=== PATIENT | male | born 1995 | race Caucasian/White ===

== ENCOUNTER 2020-03-09 20:33 | Emergency (ER) | payer BC, OTHER ==
[2020-03-09 20:40] VITALS: TEMP 98.2
[2020-03-09] MEDS ORDERED: RABIES IMMUNE GLOB 300 UNIT/ML 1 ML VIAL IM ONE (21:03)
[2020-03-09] MEDS ORDERED: RABIES VACCINE (PCEC) 2.5 UNIT KIT IM ONE (21:03)
[2020-03-09] MEDS ORDERED: DIPH,PERTUS(ACELL)TETVAC-LF 0.5 ML VIAL IM ONE (21:03)
[2020-03-09] MEDS ORDERED: RABIES IMMUNE GLOB 300 UNIT/ML 5 ML VIAL IM ONE (21:15)
--- NOTE | 2020-03-09 22:01 | ED ---
General Adult HPI - General Chief complaint: Animal Bite Stated complaint: Bat Bite Time Seen by Provider: 03/09/20 20:45 Source: patient, RN notes reviewed, old records reviewed Mode of arrival: ambulatory Limitations: no limitations - History of Present Illness Initial comments: 23-year-old male patient with the chief complaint of bat bite. Patient reports that there was a bad in his house and his cat was engaging with that. He reports that he attempted to grab the bat and it bit him on the index finger of his right hand. Patient reports that he there is a cleaned afterwards. This occurred about 1-2 hours before coming to the ER. He denying any other complaints or any other bites besides the one time on the finger. Systemic: Pt denies fatigue, fever/chills, rash. Pt denies weakness, night sweats, weight loss. Neuro: Pt denies headache, visual disturbances, syncope or pre-syncope. HEENT: Pt denies ocular discharge or irritation, otalgia, rhinorrhea, pharyngitis or notable lymphadenopathy. Cardiopulmonary: Pt denies chest pain, SOB, heart palpitations, dyspnea on exertion. Abdominal/GI: Pt denies abdominal pain, n/v/d. : Pt denies dysuria, burning w/ urination, frequency/urgency. Denies new onset urinary or bowel incontinence. MSK: Pt denies myalgia, loss of strength or function in extremities. Neuro: Pt denies new onset weakness, paresthesias. - Related Data Home Medications Medication Instructions Recorded Confirmed Unable To Assess [Unable to Assess] 05/17/15 05/17/15 Allergies Allergy/AdvReac Type Severity Reaction Status Date / Time No Known Allergies Allergy Verified 03/09/20 20:40 Review of Systems ROS Statement: Those systems with pertinent positive or pertinent negative responses have been documented in the HPI. ROS Other: All systems not noted in ROS Statement are negative. Past Medical History Past Medical History: No Reported History Additional Past Medical History / Comment(s): ADD, OCD, Autism History of Any Multi-Drug Resistant Organisms: None Reported Past Surgical History: Cholecystectomy Past Psychological History: ADD/ADHD Smoking Status: Never smoker Past Alcohol Use History: Rare Past Drug Use History: None Reported General Exam - General Exam Comments Initial Comments: Constitutional: NAD, AOX3, Pt has pleasant affect. HEENT: NC/AT, trachea midline, neck supple, no lymphadenopathy. External ears appear normal, without discharge. Mucous membranes moist. EOM intact. There is no scleral icterus. No pallor noted. Cardiopulmonary: RRR, no murmurs, rubs or gallops, no JVD noted. Lungs CTAB in anterior and posterior romeo. No peripheral edema. Neuro: CN II-XII grossly intact. No nuchal rigidity. MSK: No other areas of trauma noted on figer or hand. Full active ROM in upper and lower extremities, 5/5 stregnth. Limitations: no limitations Course Vital Signs 03/09/20 20:37 Temperature 98.2 F Pulse Rate 88 Respiratory 18 Rate Blood Pressure 121/86 O2 Sat by Pulse 97 Oximetry Medical Decision Making - Medical Decision Making 23-year-old male patient with the chief complaint of bat bite. Patient reports that there was a bad in his house and his cat was engaging with that. He reports that he attempted to grab the bat and it bit him on the index finger of his right hand. Patient reports that he there is a cleaned afterwards. This occurred about 1-2 hours before coming to the ER. He denying any other complaints or any other bites besides the one time on the finger. Patient vital signs are stable, afebrile. Physical exam displayed a small puncture. Area was cleaned again. Rabies immunoglobulin was injected around the area and then intramuscularly. Rabies vaccine was injected intramuscularly. Patient does still have bat. Patient will be given information for animal control and the health department in order to find the proper area to bring in for testing. Patient will follow-up with his primary care provider and get to was never sent after the completion of his rabies vaccine. Case discussed with Dr. Portillo. Disposition Clinical Impression: Bat bite of finger Disposition: HOME SELF-CARE Condition: Stable Instructions (If sedation given, give patient instructions): Animal Bite (ED), Rabies Vaccine (ED) Additional Instructions: Go to the [facility] on 03/12 03/16 03/23 for completion of the vaccine. Follow up with primary care provider tomorrow. Call the health department as well as animal control to find the proper area to bring the bat for testing. Return to ER if any worsening symptoms. [facility] [address] [place] [phone] Email: Animal Control Office [facility] Address: [address] [place] [address], [place] [address] Hours: Sunday 8AM4:30PM Sunday 8AM4:30PM 8AM4:30PM Sunday 8AM4:30PM Sunday Closed Sunday Closed Sunday 10AM6:30PM Closed Opens Sun Is patient prescribed a controlled substance at d/c from ED?: No Referrals: Nonstaff,Physician [Primary Care Provider] - 1-2 days
[2020-03-09 22:23] VITALS: BP 120/81; PULSE 66; RESP 16
== END 2020-03-09 22:25 | disposition home or self-care (01) ==
LOC: EC 20:33
DX: S61.230A Puncture wound without foreign body of right index finger without damage to nail, initial encounter (principal); W55.81XA Bitten by other mammals, initial encounter; Y92.009 Unspecified place in unspecified non-institutional (private) residence as the place of occurrence of the external cause
CPT/HCPCS: 90375; 90471; 90675; 90715; 96372; 99284

== ENCOUNTER 2020-03-31 20:23 | Emergency (ER) | payer BC ==
[2020-03-31 20:30] VITALS: BP 126/84; PULSE 79; RESP 16; TEMP 98.2
--- NOTE | 2020-03-31 20:42 | ED ---
ENT HPI - General Chief complaint: Dental/Oral Stated complaint: Dental Pain Time Seen by Provider: 03/31/20 20:35 Source: patient Mode of arrival: ambulatory Limitations: no limitations - History of Present Illness Initial comments: Patient is a 24-year-old male presenting to the emergency department with a chief complaint abdominal pain. Patient reports the pain is located in the left lower jaw his mouth. Patient states he seen a dentist and is not waiting to see an oral surgeon. Patient states she is currently on amoxicillin for the last few days with no significant improvement in his symptoms as far as the pain is concerned. Patient denies any facial swelling, night sweats or chills. Denies any radiation of the pain. Patient states the pain is exacerbated with mastication. Patient is not diabetic. Denies nausea vomiting diarrhea. - Related Data Home Medications Medication Instructions Recorded Confirmed Esomeprazole Magnesium [NexIUM 40 mg PO DAILY 03/12/20 03/16/20 24Hr] PARoxetine HCL [PARoxetine HCL ER] 25 mg PO DAILY 03/12/20 03/16/20 Allergies Allergy/AdvReac Type Severity Reaction Status Date / Time No Known Allergies Allergy Verified 03/31/20 20:30 Review of Systems ROS Statement: Those systems with pertinent positive or pertinent negative responses have been documented in the HPI. ROS Other: All systems not noted in ROS Statement are negative. Past Medical History Past Medical History: No Reported History Additional Past Medical History / Comment(s): ADD, OCD, Autism History of Any Multi-Drug Resistant Organisms: None Reported Past Surgical History: Cholecystectomy Past Psychological History: ADD/ADHD Smoking Status: Never smoker Past Alcohol Use History: Occasional Past Drug Use History: None Reported General Exam Limitations: no limitations General appearance: alert, in no apparent distress, obese Head exam: Present: atraumatic, normocephalic, normal inspection Eye exam: Present: normal appearance, PERRL, EOMI Pupils: Present: normal accommodation ENT exam: Present: normal exam, mucous membranes moist, TM's normal bilaterally, normal external ear exam. Absent: normal oropharynx (Cavities and tooth number 18 and 19. No gingival erythema. No signs of periapical abscess.), mucous membranes dry Neck exam: Present: normal inspection, full ROM. Absent: tenderness, lymphadenopathy Respiratory exam: Present: normal lung sounds bilaterally. Absent: respiratory distress, wheezes, rales, rhonchi, stridor Cardiovascular Exam: Present: regular rate, normal rhythm, normal heart sounds. Absent: bradycardia, tachycardia, irregular rhythm, systolic murmur, diastolic murmur Extremities exam: Present: normal inspection, full ROM, normal capillary refill. Absent: tenderness Back exam: Present: normal inspection, full ROM. Absent: tenderness Neurological exam: Present: alert, oriented X3, normal gait Psychiatric exam: Present: normal affect, normal mood Skin exam: Present: warm, dry, intact, normal color Course Vital Signs 03/31/20 20:27 Temperature 98.2 F Pulse Rate 79 Respiratory 16 Rate Blood Pressure 126/84 O2 Sat by Pulse 98 Oximetry Medical Decision Making - Medical Decision Making Patient is a 24-year-old male presenting to the emergency department with chief complaint abdominal pain. On exam he has 2 cavities and tooth #18 and 19. No signs of gingival erythema, periapical abscess. No suspicion for Eleazar's angina. Patient will be started on Tylenol 3 starter pack and Augmentin. He was advised to stop using the amoxicillin. He has an appointment this week with an oral surgeon. Strict return parameters were thoroughly discussed the patient was worsening agreeable. Case discussed with physician. Disposition Clinical Impression: Dental cavity, Toothache Disposition: HOME SELF-CARE Condition: Stable Instructions (If sedation given, give patient instructions): Toothache (ED) Additional Instructions: Take prescribed medication as directed. Follow up with a dentist. Return to emergency department if symptoms worsen. Is patient prescribed a controlled substance at d/c from ED?: No Referrals: Nonstaff,Physician [Primary Care Provider] - 1-2 days Time of Disposition: 20:54
[2020-03-31] MEDS ORDERED: ACET/COD 300 MG/30 MG STARTER PACK 6 TAB BTL PO STA (20:50)
[2020-03-31] MEDS ORDERED: AMOXIC-POT CLAV 875-125MG 1 EACH TAB PO STA (20:50)
== END 2020-03-31 21:06 | disposition home or self-care (01) ==
LOC: EC 20:23
DX: K08.89 Other specified disorders of teeth and supporting structures (principal); K02.9 Dental caries, unspecified; Z79.899 Other long term (current) drug therapy
CPT/HCPCS: 99282